=== PATIENT | female | born 1985 | race Caucasian/White ===

== ENCOUNTER 2018-12-05 11:00 | Emergency (ER) | payer SELFPAY ==
[2018-12-05] MEDS ORDERED: Amoxicillin/Potassium Clav 875 MG TAB ONE (11:25)
== END 2018-12-05 11:37 | disposition home or self-care (01) ==
LOC: BURERS 11:00
DX: H60.501 Unspecified acute noninfective otitis externa, right ear (principal)
CPT/HCPCS: 99282

== ENCOUNTER 2019-03-13 16:26 | Emergency (ER) | payer SELFPAY ==
[2019-03-13] MEDS ORDERED: ALPRAZolam 0.5 MG TAB ONE (16:44)
[2019-03-13 17:04] LABS: %Lymphocytes 20.9 % (21.0-51.0); %Neutrophils 70.4 % (42.0-75.0); Hemoglobin 13.3 g/dL (12.0-16.0); Mean Corpuscular HGB CONC 33.1 g/dL (32.0-36.0); Mean Corpuscular Hemoglobin 29.3 pg (27.0-31.0); Mean Corpuscular Volume 88.6 fL (78.0-98.0); Mean Platelet Volume 7.8 fL (7.4-10.4); Platelet Count 215 thou/uL (130-400); Red Blood Cell (RBC) Count 4.52 mill/uL (4.20-5.40); White Blood Cell (WBC) Count 11.4 thou/uL (4.8-10.8)
[2019-03-13 17:05] LABS: #Basophils 0.1 thou/uL (0.0-0.2); #Eosinphils 0.1 thou/uL (0.0-0.7); #Monocytes 0.8 thou/uL (0.11-0.59); %Basophils 0.9 % (0.0-1.0); %Eosinophils 0.5 % (0.0-10.0); %Monocytes 7.3 % (0.0-10.0); MDiff Complete? YES
[2019-03-13 17:15] LABS: ALT (SGPT) 17 U/L (8-55); AST (SGOT) 19 U/L (5-34); Alkaline Phosphatase 92 U/L (40-110); Anion Gap 17 mmol/L (10-20); BUN (Urea Nitrogen) 6 mg/dL (7.0-18.7); Bilirubin, Total 0.3 mg/dL (0.2-1.2); Calc. Creatinine Clearance 0 mL/min (70-130); Carbon Dioxide 21 mmol/L (22-29); Chloride 102 mmol/L (98-107); Estimated GFR-MDRD Greater than 90; Globulin 3.2 g/dL (2.4-3.5); Glucose 95 mg/dL (70-105); Lipase 17 U/L (8-78); Potassium 3.5 mmol/L (3.5-5.1); Protein, Total 7.2 g/dL (6.0-8.3); Sodium 136 mmol/L (136-145)
--- NOTE | 2019-03-13 21:29 | RAD ---
PORTABLE CHEST: Date: 03-13-19 Comparison: 03-06-19 FINDINGS: The heart is normal in size and the lungs show no lobar infiltrate or effusion. There is no vascular congestion or edema. A little haziness near the right heart border is probably due to overlying soft tissues. IMPRESSION: No definite acute finding. POS: HOME
[2019-03-14 04:21] LABS: #Lymphocytes 2.4 thou/uL (1.20-3.40)
== END 2019-03-13 17:30 | disposition home or self-care (01) ==
LOC: BURERS 16:26
DX: R07.2 Precordial pain (principal); F17.210 Nicotine dependence, cigarettes, uncomplicated; F43.10 Post-traumatic stress disorder, unspecified; F41.9 Anxiety disorder, unspecified; F32.9 Major depressive disorder, single episode, unspecified; Z79.899 Other long term (current) drug therapy
CPT/HCPCS: 71045; 80053; 83690; 84484; 85025; 93005